=== PATIENT | male | born 1985 | race Caucasian/White ===

== ENCOUNTER 2021-01-02 21:06 | Emergency (ER) | payer OTHER, SELFPAY ==
[2021-01-02 21:29] VITALS: BP 110/57; PULSE 97; RESP 18; TEMP 36.6; O2SAT 99; BMI 25.1
--- NOTE | 2021-01-02 21:49 | ED.GENADULT ---
HPI - General Adult General Chief complaint: General Medical Stated complaint: od Time Seen by Provider: 01/02/21 21:49 History of Present Illness HPI narrative: patient is a 35-year-old male with a history of polysubstance abuse. He used cocaine and use fentanyl today. Subsequently was found difficult to arouse. Patient was given cold water subsequently woke up. Patient denies any chest pain shortness of breath dizziness. Is ambulatory in the emergency department. Wants to leave. Patient does not want detox at this time. Related Data Allergies Allergy/AdvReac Type Severity Reaction Status Date / Time No Known Allergies Allergy Unverified 03/24/20 15:34 Review of Systems Review of Systems: Constitutional: No Weight loss, No Fever, No Chills, No Night Sweats, No Fatigue, No Malaise ENT/Mouth: No Hearing loss, No Ear Pain, No Nasal Congestion, No Sinus Pain, No Hoarseness, No sore throat, No Rhinorrhea, No Swallowing Difficulty Eyes: No Eye Pain, No Swelling, No Redness, No Foreign Body, No Discharge, No Vision Changes Cardiovascular: No Chest Pain, No SOB, No Dyspnea on Exertion, No Orthopnea, No Edema, No Palpitations Respiratory: No Cough, No Sputum, No Wheezing, No Smoke Exposure, No Dyspnea Gastrointestinal: No Nausea, No Vomiting, No Diarrhea, No Constipation, No abdominal Pain, No Hematochezia, No Melena Genitourinary: no irregular bleeding, No Dysuria, No Urinary Frequency, No Hematuria, No Urinary Incontinence, No Urgency, No Flank Pain, No Urinary Flow Changes, No Hesitancy Musculoskeletal: No joint pain, No Myalgias, No Joint Swelling Skin: No Skin Lesions, No rash Neuro: No Weakness, No Numbness, No Paresthesias, No Loss of Consciousness, No Dizziness, No Headache Psych: No Anxiety/Panic, No Depression, No SI/HI/AH/VH, No Social Issues, Heme/Lymph: No Bruising, No Bleeding,No Lymphadenopathy Endocrine: No Polyuria, No Polydipsia, No Temperature Intolerance [facility] Social History Social History Advance Directives: No Advance Directives Information Provided: Yes Physical Exam Vital Signs: Vital Signs: Last Vital Signs Temp 97.8 F 01/02/21 21:29 Pulse 97 01/02/21 21:29 Resp 18 01/02/21 21:29 BP 110/57 L 01/02/21 21:29 Pulse Ox 99 01/02/21 21:29 Body Mass Index 25.1 Appearance: Alert. Oriented X3. No acute distress. Eyes: Pupils equal, round and reactive to light. ENT: Pharynx normal. Neck: Normal inspection. Neck supple. No lymph nodes noted. No crepitus CVS: Normal heart rate and rhythm. Pulses normal. Normal S1 and S2 Respiratory: No respiratory distress. Breath sounds normal. No Wheezing. No rales Abdomen: Soft and nontender. No rigidity. No distention. good BS x4 Skin: Skin warm and dry. Normal skin color. Normal skin turgor. Extremities: No lower extremity edema. Neurovascular intact to all extremities. No Lacerations. No Rash Neuro: Oriented X 3. No motor deficit. No sensory deficit. Moving all extermities. No slurred speech Medical Decision Making MDM Narrative Medical decision making narrative: Patient did not want detox at this time. Was given a nasal Narcan. Patient told if he needs help he is welcome back at any time. He was told to go to detox. Currently in stable condition. Discharge Plan Discharge Clinical Impression: Opioid abuse Patient Disposition: Home, Self-Care Instructions: Narcotic Use Disorder (ED) Referrals: Physician,Unknown [Primary Care Provider] - 2 days ( Please stop using heroin/ fentanyl. Using heroin/ fentanyl and cocaine can kill you. You almost today. Please go to detox)
== END 2021-01-02 22:03 | disposition home or self-care (01) ==
PROVIDERS: Emergency Provider Emergency Medicine Emergency Medical Services
DX: F11.10 Opioid abuse, uncomplicated (principal); F14.90 Cocaine use, unspecified, uncomplicated
CPT/HCPCS: 99283

== ENCOUNTER 2021-01-07 20:12 | Emergency (ER) | payer OTHER, SELFPAY ==
[2021-01-07 20:18] VITALS: BP 121/80; PULSE 85; RESP 22; TEMP 37; O2SAT 96; BMI 23.7
--- NOTE | 2021-01-07 20:37 | PC.NURSE ---
plan of care is to monitor for 2 hours. will attempt po challenge after 1 hr of montioring.
--- NOTE | 2021-01-07 20:38 | ED.OVERDOSE ---
HPI - Overdose General Chief Complaint: Overdose Stated Complaint: OVERDOSE Source: patient and EMS Mode of arrival: EMS Limitations: altered mental status History of Present Illness HPI Narrative: 35-year-old male presents via EMS for overdose on heroin and cocaine. Was given 8 mg of Narcan in the community. He does not have any complaints at this time. He does not report any suicidal or homicidal ideation, and stated this was an accidental overdose. MD complaint: accidental overdose Onset (ago): hour(s) ( Within the hour of arrival) Context: Accidental Overdose: wanted to get high Treatments Prior to Arrival: narcan Related Data Home Medications Medication Instructions Recorded Confirmed No Known Home Meds 01/07/21 01/07/21 Allergies Allergy/AdvReac Type Severity Reaction Status Date / Time No Known Allergies Allergy Unverified 03/24/20 15:34 Review of Systems Review of Systems: Constitutional: No Fever, No Chills ENT/Mouth: No sore throat, No Rhinorrhea Eyes: No Eye Pain, No Swelling, No Redness Cardiovascular: No Chest Pain, No SOB Respiratory: No Cough, No Sputum Gastrointestinal: No Nausea, No Vomiting, No Diarrhea, No abdominal Pain Genitourinary: No Dysuria, No Hematuria Musculoskeletal: No joint pain, No Myalgias, No Joint Swelling Skin: No Skin Lesions, No rash Neuro: No Weakness, No Numbness, No Loss of Consciousness, No Dizziness, No Headache Psych: No Anxiety, No Depression, No SI/HI/AH/VH Heme/Lymph: No Bruising, No Bleeding,No Lymphadenopathy Endocrine: No Polyuria, No Polydipsia Yes all other systems are reviewed and are negative PMFSH Past Medical History Attestation statement: The following information was validated with the patient. Source: old records reviewed Social History Social History Alcohol intake: current Alcohol intake frequency: 0-2 drinks per day Alcohol type: beer, wine and hard liquor Patient Tobacco Use Status: Current everyday Tobacco user Smoked in Last 30 Days: Yes Use of substances other than those prescribed or required for medical reasons: Yes Substance Use Type: IV Drugs and Opiates Advance Directives: No Advance Directives Information Provided: Yes Physical Exam Vital Signs: Vital Signs: Last Vital Signs Temp 98.6 F 01/07/21 20:18 Pulse 85 01/07/21 20:18 Resp 22 H 07/03/21 20:18 BP 121/80 01/07/21 20:18 Pulse Ox 96 01/07/21 20:18 Body Mass Index 23.7 Appearance: Alert. Oriented X3. No acute distress. Eyes: Pupils equal, round and reactive to light. EOMI, sclera nonicteric ENT: Pharynx normal. cranial nerves 2-12 intact , managing secretions without difficulty. Neck: Normal inspection. Neck supple. CVS: Normal heart rate and rhythm. Pulses normal. Respiratory: No respiratory distress. lung sounds clear to auscultation all lobes, no tracheal stridor. Abdomen: Soft and nontender. Skin: Skin warm and dry. Normal skin color. Normal skin turgor. Extremities: No lower extremity edema. Moves all extremities spontaneously. Neuro: No motor deficit. No sensory deficit. Course Course Course Narrative: 35-year-old male presents via EMS for overdose on cocaine and heroin. Was given 8 mg of Narcan in the field. Patient is alert oriented x4, answering questions politely and appropriately, not interested in detox at this time. Stated this was accidental. Will monitor for 2 hours and then discharge home. 10:04 p.m. patient tolerating p.o. fluids and food without difficulty. Lung sounds clear, no respiratory distress, even unlabored respirations. Patient continues to decline detox services. Patient verbalized understanding of and agrees to plan of care discharge home. Upon discharge, patient is belligerent, swearing at all staff, security called and patient was escorted out of the facility. MDM - Overdose Differential Diagnosis Differential diagnosis: Likely drug overdose Discharge Plan Discharge Clinical Impression: Drug overdose Qualifiers: Encounter type: initial encounter Injury intent: accidental or unintentional Qualified Code(s): T50.901A - Poisoning by unspecified drugs, medicaments and biological substances, accidental (unintentional), initial encounter Patient Disposition: Home, Self-Care Instructions: Opioid Use Disorder (ED) Additional Instructions: please consider detox. Thank you for choosing this emergency department for evaluation. Please follow-up with primary care physician as needed. Return to the emergency department for any new, concerning, or worsening symptoms. Prescriptions: No Action No Known Home Meds RF: 0
--- NOTE | 2021-01-07 22:07 | PC.NURSE ---
pt became verbally abusive to this sba underwriter and staff upon finding out he was discharged. IV was removed, per protocol. iv dressing applied. Pt became irate and verbally abusive when pt was not given a refil on water immediately. Fuck you and your attitude . Security called to bedside for pt behavior. per patient you fucking ripped this IV out of my arm, you stupid motherfuckering bitch. i see the same 3-4 fucking people every week, suck a rosy asshole i want my shit now. pt was unable to be verbally descliated, by this rn, security and provider called to bedside. i'm going to go to [facility] and get this shit checked. Pt educated that dressing was applied and he ripped it off. When 2nd gauze dressing was offered, pt told 2 staff RNs to fuck off. Pt belongings brought from [facility], to dress at bedside. i'm going to fucking leave of my own accord. Pt left ED 21 with unarmed security officer.
== END 2021-01-07 22:14 | disposition home or self-care (01) ==
PROVIDERS: Emergency Provider Internal Medicine
DX: T40.1X1A Poisoning by heroin, accidental (unintentional), initial encounter (principal); T40.5X1A Poisoning by cocaine, accidental (unintentional), initial encounter; Y92.9 Unspecified place or not applicable
CPT/HCPCS: 99283; 99284

== ENCOUNTER 2021-01-10 03:24 | Emergency (ER) | payer OTHER, SELFPAY ==
[2021-01-10] VITALS (9 sets, daily range): BP systolic 96–144; BP diastolic 52–89; PULSE 56–110; RESP 14–25; TEMP 36.4–36.7; O2SAT 93–100; BMI 23.7
--- NOTE | 2021-01-10 04:06 | ED.OVERDOSE ---
HPI - Overdose General Chief Complaint: Overdose Stated Complaint: HEROIN OVERDOSE,8MG NASAL NARCAN BY PD,GOOD EFFECT Time Seen by Provider: 01/10/21 04:06 Source: patient Mode of arrival: EMS History of Present Illness HPI Narrative: 35-year-old male brought in by EMS after being found in the bathroom unconscious, police administered 8 mg Narcan and patient required initial respiratory assist until saturations improved to 98% and remained at this level on room air. Patient denies suicidal ideations and states that he has recently started using heroin. Related Data Home Medications Medication Instructions Recorded Confirmed No Known Home Meds 01/07/21 01/07/21 Allergies Allergy/AdvReac Type Severity Reaction Status Date / Time No Known Allergies Allergy Unverified 03/24/20 15:34 Review of Systems Review of Systems: Pertinent positives and negatives as stated in HPI 10 point review of systems is otherwise negative. PMFSH Past Medical History Source: nursing notes reviewed Social History Social History Alcohol intake: current Alcohol intake frequency: a few times a week Alcohol type: beer, wine and hard liquor Patient Tobacco Use Status: Current everyday Tobacco user Use of substances other than those prescribed or required for medical reasons: Yes Substance Use Type: Heroin Substance Use Frequency: Daily Last Used Substance: Just Prior to Admission Any prior treatment program specific to substance use: No Advance Directives: No Physical Exam Vital Signs: Vital Signs: Last Vital Signs Temp 98.0 F 01/10/21 03:30 Pulse 63 01/10/21 06:48 Resp 14 01/10/21 06:48 BP 98/52 L 01/10/21 06:48 Pulse Ox 94 01/10/21 06:48 Body Mass Index 23.7 VITAL SIGNS: Reviewed. GENERAL: Well developed, well nourished, in no acute distress. HEAD: Normocephalic/atraumatic, EYES: PERRLA, EOMI EARS: Ext canals without abnormality OROPHARYNX: no oral lesions noted, posterior pharynx clear NECK: Supple, no adenopathy LUNGS: Normal breath sounds. No adventitious sounds or accessory muscle use. SpO2<94> CARDIOVASCULAR: Regular rate and rhythm without noted murmurs ABDOMEN: Soft, non-tender, non-distended with bowel sounds. SKIN: Inspection of the skin reveals no rashes NEUROLOGIC: Alert and oriented x 4. Strength and sensation to light touch were grossly intact x 4. Course Course Course Narrative: 35-year-old male with history and clinical presentation consistent with repeated overdose with heroin but denies suicidal ideation. On re-evaluation he remains drowsy but may be discharged based on clinical evaluation. Signed out to Dr Johnson Reevaluation(s) Reevaluation #1: Patient placed in physician observation because the patient needed more time to sober up. At the time observation was started the patient's vital signs were stable, patient is alert and oriented, neuro: Nonfocal, CV RRR, lungs clear Time: 06:54 Discharge Plan Discharge Clinical Impression: Drug overdose Patient Disposition: Home, Self-Care Instructions: Adult Overdose (ED) Additional Instructions: Return for acute worsening of your symptoms. Prescriptions: No Action No Known Home Meds RF: 0 Referrals: Physician,Unknown [Primary Care Provider] - 2 days
--- NOTE | 2021-01-10 04:43 | PC.NURSE ---
pt sleeping soundly, easy to arrouse, sat dropping to 93-96% while asleep and 97% while awake. pt bp 99/61 and when woke up 106/60 pt calm and cooperative.
--- NOTE | 2021-01-10 06:01 | PC.NURSE ---
pt states he is homeless and he has been using since this occured about 3 weeks.
--- NOTE | 2021-01-10 07:17 | PC.NURSE ---
Patient is resting quietly in bed with eyes closed in no acute distress. Respirations are even and nonlabored with sats 95% on room air.
--- NOTE | 2021-01-10 08:42 | PC.NURSE ---
Patient is asleep in bed in no distress. Pt is easily aroused and answers questions appropriately
--- NOTE | 2021-01-10 10:13 | MHC.RECOVSUP ---
? Reason for consult:Continuity of care o Current location: Bed 6 o Identified substance use concern: Heroin - Overdose - Support ? Intervention: o Community resources provided o Harm reduction discussion ? Plan: o Patient to follow up with [facility] after discharge ? Additional information: Pt. refusing services.
== END 2021-01-10 10:25 | disposition home or self-care (01) ==
PROVIDERS: Emergency Provider Student in an Organized Health Care Education/Training Program
DX: T40.1X1A Poisoning by heroin, accidental (unintentional), initial encounter (principal); R40.20 Unspecified coma; Y92.012 Bathroom of single-family (private) house as the place of occurrence of the external cause; F17.210 Nicotine dependence, cigarettes, uncomplicated
CPT/HCPCS: 99285

== ENCOUNTER 2021-06-20 17:04 | Emergency (ER) | payer OTHER, SELFPAY ==
--- NOTE | ~2021-06-20 | XR_ITS ---
EXAMINATION: XR LUMBOSACRAL SPINE CLINICAL INFORMATION: Back pain. COMPARISON: None TECHNIQUE: Three views of the lumbosacral spine. FINDINGS: The vertebral bodies and posterior elements are normal. The disc spaces are preserved and the vertebral alignment is normal. The paraspinal soft tissues are normal. XR/XR lumbar spine 2-3V IMPRESSION: Unremarkable examination.
--- NOTE | 2021-06-20 17:14 | ED_ITS ---
HPI - Back Pain/Injury General Chief Complaint: General Medical Stated Complaint: Back pain Non traumatic Time Seen by Provider: 06/20/21 17:13 Source: patient Mode of arrival: EMS Limitations: no limitations History of Present Illness HPI Narrative: Patient was sent from [facility] after complaining of back pain. Had just been admitted to [facility] for suicidal ideation. While admitted there he was complaining of back pain. Patient had back spasms and tongue spasm. He was sedated likely with calvin SALAZAR elicited complaint: back pain Timing: intermittent Severity: severe Associated symptoms: denies other symptoms Related Data Previous Rx's Medication Instructions Recorded diphenhydramine HCl 25 mg capsule 25 mg PO TID #14 cap 06/20/21 (Benadryl) Allergies Allergy/AdvReac Type Severity Reaction Status Date / Time No Known Allergies Allergy Unverified 03/24/20 15:34 Review of Systems Constitutional: Constitutional: Reports no additional constitutional complaints Eyes: Eyes: Reports no additional eye complaints ENT: Denies dizziness Cardiovascular: Cardiovascular: Reports no additional cardiovascular complaints Respiratory: Respiratory: Reports as per HPI Gastrointestinal: Gastrointestinal: Reports no additional gastrointestinal complaints Musculoskeletal: Musculoskeletal: Reports no additional musculoskeletal complaints Integumentary/Breasts: Skin/Breast: Denies rash Neurologic: Reports system reviewed and no additional complaints, except as documented, Denies dizziness and Denies Sensory deficit (Neuro) Psychiatric: Psychiatric: Denies anxiety [facility] Social History Social History Alcohol intake: current Alcohol intake frequency: a few times a week Alcohol type: beer, wine and hard liquor Patient Tobacco Use Status: Current everyday Tobacco user Substance Use Type: Heroin Advance Directives: No Advance Directives Information Provided: No Physical Exam Vital Signs: Vital Signs: Last Vital Signs Temp 98 F 06/20/21 17:17 Pulse 71 06/20/21 17:17 Resp 18 06/20/21 17:17 BP 112/74 06/20/21 17:17 Pulse Ox 95 06/20/21 17:17 BMI result Body Mass Index 25.1 Const: General: healthy appearing Nutritional Appearance: average body habitus Orientation/consciousness: oriented to person and patient oriented x3 Limitations: no limitations HENMT: Head: Yes normal to inspection Ears: external ears normal General nose exam: Normal external nose present Mouth: Normal oral and palatal mucosa present and oropharynx normal Throat: Yes posterior oropharynx normal Eyes: General: appearance normal, both eyes and all related structures Neck: Other: supple Neck: Yes normal visual inspection Chest: Chest palpation & inspection: normal inspection of the chest Resp: Auscultation: clear to auscultation bilaterally Cardio: Jugular venous distension: no JVD Rate: regular rate Rhythm: regular rhythm Heart sounds: S1 normal heart sound present and S2 normal heart sound present GI: Inspection: Yes normal to inspection Palpation (GI): Soft to palpation, nontender and No hepatosplenomegaly present Auscultation: normal bowel sounds : General: Yes no CVA tenderness Back/Spine/Pelvis: Back: no CVA tenderness Skin: General skin exam: no rashes or lesions noted Neuro: General: oriented to person and patient oriented x3 Cranial nerves: Yes CN's II-XII intact bilaterally Motor exam (neuro): 5/5 motor strength present throughout Sensory Exam: No Sensory deficit (Neuro) Extrem: General: Yes normal to inspection Psych: Appearance: grossly normal Course Reevaluation(s) Reevaluation #1: patient gives and excellent history of dystonia after receiving chemical sedation in the psych [facility] at [facility]. Will give benadryl and dc home. Time: 18:14 MDM - Back Pain/Injury Imaging Data lumbar sacral: Radiologist's impression: IMPRESSION: Unremarkable examination. Discharge Plan Discharge Clinical Impression: Dystonia Patient Disposition: Home, Self-Care Prescriptions: New diphenhydramine HCl [Benadryl] 25 mg capsule 25 mg PO TID Qty: 14 RF: 0 Referrals: Physician,None [Primary Care Provider] - 1 week
[2021-06-20 17:17] VITALS: BP 112/74; BP 140/70; PULSE 71; PULSE 80; RESP 18; TEMP 36.6; O2SAT 95; O2SAT 98; BMI 25.1
[2021-06-20] MEDS: diphenhydrAMINE HCL 50 MG/ML VIAL 25 MG IM (18:46)
[2021-06-20 18:47] VITALS: BP 112/65; PULSE 66; RESP 18; TEMP 36.9; O2SAT 98
[2021-06-20 19:04] VITALS: BP 104/53; PULSE 64; RESP 16; O2SAT 100
--- NOTE | 2021-06-20 19:36 | PC.NURSE ---
Pt remains alert and oriented x4, calm and cooperative. Pt denies pain or muscle spasms, pt states all symptoms have resolved at this time. Pt ready for discharge back to [facility]. Call x1 placed to [facility] at 1935, spoke with Mary, waiting for call back to confirm bed placement and okay for transport back to facility. Pt aware and waiting patiently without issues.
--- NOTE | 2021-06-20 20:15 | PC.NURSE ---
RN spoke with LILA Avelar from [facility], per RN Rosio patient has bed placement pending clearance from provider to provider report. MD Cabrera spoke with ALFREDO Young, pt cleared to return back to [facility]. Pt aware and agrees to plan of care without issues.
--- NOTE | 2021-06-20 21:05 | PC.NURSE ---
Report given to [facility] without issues. Pt left ER without issues. Vitals remain stable. Pt remains alert and oriented x4, calm and cooperative, denies pain.
== END 2021-06-20 21:09 | disposition home or self-care (01) ==
PROVIDERS: Emergency Provider Emergency Medicine
DX: G24.9 Dystonia, unspecified (principal); M54.50 Low back pain, unspecified; F17.200 Nicotine dependence, unspecified, uncomplicated
CPT/HCPCS: 72100; 96372; 99284; J1200

== ENCOUNTER 2021-07-04 00:29 | Emergency (ER) | payer OTHER, SELFPAY ==
[2021-07-04 00:33] VITALS: BP 142/78; PULSE 87; RESP 20; TEMP 36.6; O2SAT 97; BMI 25.1
--- NOTE | 2021-07-04 01:16 | ECG_ITS ---
Test Reason : dizziness Blood Pressure : / mmHG Vent. Rate : 080 BPM Atrial Rate : 080 BPM P-R Int : 136 ms QRS Dur : 098 ms QT Int : 384 ms P-R-T Axes : 070 003 047 degrees QTc Int : 442 ms Normal sinus rhythm Possible Left atrial enlargement Borderline ECG When compared to the previous EKG of No significant changes seen Referred By: Priya Heard Electronically Signed By:Johann Lundy
[2021-07-04 01:30] LABS: Basophils Percent Auto 0.2 % (0-2); Eosinophils Percent Auto 0.2 % (0-4); Hematocrit 38.6 % (42.0-52.0); Hemoglobin 13.1 g/dl (14.0-18.0); Imm Gran Abs Auto 0.03 X10*3/uL (0.00-0.03); Imm Gran Pct Auto 0.3 % (0.0-0.4); Lymphocytes Absolute Auto 1.4 X10*3/uL (1.2-4.9); MANUAL DIFF FLAG NO; Mean Corpuscular HGB Conc 33.9 g/dl (31.0-36.0); Mean Corpuscular Hemoglobin 32.1 pg (27.0-33.0); Mean Corpuscular Volume 94.6 fL (80.0-98.0); Mean Platelet Volume 9.4 fL (9.4-12.4); Monocytes Absolute Auto 0.6 X10*3/uL (0.1-1.2); Monocytes Percent Auto 6.6 % (2-11); Neutrophils Absolute Auto 7.2 x10*3/uL (2.0-8.3); Neutrophils Percent Auto 77.7 % (45-73); Platelet Count 194 X10*3/uL (160-400); Red Blood Count 4.08 X10*6/uL (4.60-5.80); Red Cell Distribution Width 12.3 % (11.0-16.0); White Blood Count 9.3 X10*3/uL (4.8-10.8)
[2021-07-04 01:45] LABS: COVID-19 Test Negative (Negative); IDNOW Serial# 9DD0AD1C
[2021-07-04 02:04] LABS: Alanine Aminotransferase 20 U/L (0-40); Albumin Level 4.3 g/dL (3.5-5.0); Alkaline Phosphatase 57 U/L (39-117); Anion Gap 13 (12-20); Aspartate Amino Transferase 22 U/L (5-37); Bilirubin Total 0.7 mg/dL (0.0-1.0); Blood Urea Nitrogen 11 mg/dL (9-16); Calcium 9.2 mg/dL (8.4-10.2); Carbon Dioxide 23 mmol/L (22-29); Chloride 106 mmol/L (96-108); Creatinine Clr Calc Pharmacy 148.3; Estimated Glomerular Filt Rate > 60; Glucose Random 84 mg/dL (60-115); Potassium 3.7 mmol/L (3.3-5.1); Sodium 138 mmol/L (135-145); Total Protein 7.2 g/dL (6.5-8.0)
--- NOTE | 2021-07-04 06:35 | ED_ITS ---
HPI - General Adult General Chief complaint: Dizziness Stated complaint: fells faint, migraine Time Seen by Provider: 07/04/21 05:32 Source: patient Mode of arrival: ambulatory Limitations: no limitations History of Present Illness HPI narrative: Patient comes to the emergency room complaining of feeling dizzy after using cocaine, no chest pain or shortness of breath. Patient complaining of nausea, no vomiting or diarrhea. Patient also complaining of discomfort in the left arm. Patient states that he usually injects in that area. Related Data Previous Rx's Medication Instructions Recorded diphenhydramine HCl 25 mg capsule 25 mg PO TID #14 cap 06/20/21 (Benadryl) sulfamethoxazole 800 1 tab PO BID #14 tab 07/04/21 mg-trimethoprim 160 mg tablet (Bactrim DS) Allergies Allergy/AdvReac Type Severity Reaction Status Date / Time No Known Allergies Allergy Unverified 03/24/20 15:34 Review of Systems Review of Systems: Constitutional : No Weight loss, No Fever, No Chills, No Night Sweats, No Fatigue, No Malaise ENT/Mouth : No Hearing loss, No Ear Pain, No Nasal Congestion, No Sinus Pain, No Hoarseness, No sore throat, No Rhinorrhea, No Swallowing Difficulty Eyes: No Eye Pain, No Swelling, No Redness, No Foreign Body, No Discharge, No Vision Changes Cardiovascular : No Chest Pain, No SOB, No Dyspnea on Exertion, No Orthopnea, No Edema, No Palpitations Respiratory : No Cough, No Sputum, No Wheezing, No Smoke Exposure, No Dyspnea Gastrointestinal : No Nausea, No Vomiting, No Diarrhea, No Constipation, No abdominal Pain, No Hematochezia, No Melena Genitourinary : no irregular bleeding, No Dysuria, No Urinary Frequency, No Hematuria, No Urinary Incontinence, No Urgency, No Flank Pain, No Urinary Flow Changes, No Hesitancy Musculoskeletal : No joint pain, No Myalgias, No Joint Swelling Skin : No Skin Lesions, No rash Neuro : No Weakness, No Numbness, No Paresthesias, No Loss of Consciousness, i nitially complaining of dizziness but now that he has slept for 5 hours, it self-resolved. No Headache Psych : No Anxiety/Panic, No Depression, No SI/HI/AH/VH, No Social Issues, Heme/Lymph: No Bruising, No Bleeding,No Lymphadenopathy Endocrine : No Polyuria, No Polydipsia, No Temperature Intolerance [facility] Social History Social History Alcohol intake: current Alcohol intake frequency: a few times a week Alcohol type: beer, wine and hard liquor Patient Tobacco Use Status: Current everyday Tobacco user Use of substances other than those prescribed or required for medical reasons: Yes Substance Use Type: Crack/Cocaine Advance Directives: No Advance Directives Information Provided: Yes Physical Exam Vital Signs: Vital Signs: Last Vital Signs Temp 97.9 F 07/04/21 00:33 Pulse 71 07/04/21 06:50 Resp 20 07/04/21 00:33 BP 113/71 07/04/21 06:50 Pulse Ox 97 07/04/21 00:33 BMI result Body Mass Index 25.1 Const: Other: Appearance: Alert. Oriented X3. No acute distress. Eyes: Pupils equal, round and reactive to light. ENT: Pharynx normal. Neck: Normal inspection. Neck supple. No lymph nodes noted. No crepitus CVS: Normal heart rate and rhythm. Pulses normal. Normal S1 and S2 Respiratory: No respiratory distress. Breath sounds normal. No Wheezing. No rales Abdomen: Soft and nontender. No rigidity. No distention. good BS x4 Skin: Skin warm and dry. Normal skin color. Normal skin turgor. Mild erythema in the left antecubital fossa Extremities: No lower extremity edema. No lower extremity edema. No Lacerations. No Rash Neuro: Oriented X 3. No motor deficit. No sensory deficit. Moving all extermities. No slurred speech. Cranial nerves 2-12 grossly intact, steady gait unassisted. Psych: Calm cooperative Course Course Course Narrative: Patient feeling better after sleeping, patient is asymptomatic now. I discussed with the patient that he may have early cellulitis. Patient will be started on antibiotics. 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 Patient is not suicidal homicidal, patient would like to be discharged home Medical Decision Making Lab Data Result diagrams: 07/04/21 01:22 07/04/21 01:22 Labs: Lab Results 12/28/21 12/28/21 12/28/21 Range/Units 01:22 01:22 01:22 WBC 9.3 (4.8-10.8) X10*3/uL RBC 4.08 L (4.60-5.80) X10*6/uL Hgb 13.1 L (14.0-18.0) g/dl Hct 38.6 L (42.0-52.0) % MCV 94.6 (80.0-98.0) fL MCH 32.1 (27.0-33.0) pg MCHC 33.9 (31.0-36.0) g/dl RDW 12.3 (11.0-16.0) % Plt Count 194 (160-400) X10*3/uL MPV 9.4 (9.4-12.4) fL Immature Gran % (Auto) 0.3 (0.0-0.4) % Neut % (Auto) 77.7 H (45-73) % Lymph % (Auto) 15.0 L (20-40) % [place] % (Auto) 6.6 (2-11) % Eos % (Auto) 0.2 (0-4) % Baso % (Auto) 0.2 (0-2) % Lymph # (Auto) 1.4 (1.2-4.9) X10*3/uL [place] # (Auto) 0.6 (0.1-1.2) X10*3/uL Eos # (Auto) 0.0 (0.0-0.4) X10*3/uL Baso # (Auto) 0.0 (0.0-0.2) X10*3/uL Abs Immat Gran (auto) 0.03 (0.00-0.03) X10*3/uL Absolute Neuts (auto) 7.2 (2.0-8.3) x10*3/uL Absolute Nucleated RBC 0.000 (0.0-0.012) X10*3/uL Nucleated RBC % (auto) 0.0 (0.0-0.2) /100WBC Sodium 138 (135-145) mmol/L Potassium 3.7 (3.3-5.1) mmol/L Chloride 106 (96-108) mmol/L Carbon Dioxide 23 (22-29) mmol/L Anion Gap 13 (12-20) BUN 11 (9-16) mg/dL Creatinine 0.74 (0.5-1.4) mg/dL Estim Creat Clear Calc 148.3 Estimated GFR > 60 Random Glucose 84 (60-115) mg/dL Calcium 9.2 (8.4-10.2) mg/dL Total Bilirubin 0.7 (0.0-1.0) mg/dL AST 22 (5-37) U/L ALT 20 (0-40) U/L Alkaline Phosphatase 57 (39-117) U/L Total Protein 7.2 (6.5-8.0) g/dL Albumin 4.3 (3.5-5.0) g/dL COVID-19 ([facility]) Negative (Negative) COVID-19 Clin Com See Note ECG Data Attestation: I personally reviewed and interpreted this ECG as follows: (Normal sinus rhythm, heart rate 80, no ST segment depression or elevation, no T-wave inversion, QTC 442) Discharge Plan Discharge Clinical Impression: Cocaine use, Cellulitis Patient Disposition: Home, Self-Care Instructions: Cellulitis (ED) Additional Instructions: Please follow-up with your primary care physician tomorrow. If you have any worsening or new symptoms, please return to the emergency room or call 911 Prescriptions: New sulfamethoxazole-trimethoprim [Bactrim DS] 800-160 mg tablet 1 tab PO BID Qty: 14 RF: 0 No Action diphenhydramine HCl [Benadryl] 25 mg capsule 25 mg PO TID Qty: 14 RF: 0
[2021-07-04 06:49] VITALS: BP 115/58; PULSE 68
[2021-07-04 06:50] VITALS: BP 113/71; BP 120/80; PULSE 61; PULSE 71
--- NOTE | 2021-07-04 08:27 | PC.NURSE ---
nad, ate breakfast, awaiting CARE team consult as pt is depressed and concerned about recent relapse
--- NOTE | 2021-07-04 09:01 | PC.NURSE ---
dlept till about 0800, medicated as ordered, asked for only 20mg of lasix instead of 40mg, pt is a retired rn, nad, aware of care plan
== END 2021-07-04 09:46 | disposition home or self-care (01) ==
PROVIDERS: Emergency Provider Emergency Medicine
DX: F14.90 Cocaine use, unspecified, uncomplicated (principal); L03.114 Cellulitis of left upper limb; Z20.822 Contact with and (suspected) exposure to COVID-19
CPT/HCPCS: 36415; 80053; 85025; 87635; 93005; 99283; 99284